=== PATIENT | female | born 1985 | race Caucasian/White ===

== ENCOUNTER 2021-10-28 18:02 | Emergency (ER) | payer OTHER, SELFPAY ==
[2021-10-28 18:14] VITALS: BP 107/73; BP 116/78; PULSE 104; PULSE 95; RESP 18; TEMP 37; O2SAT 100; O2SAT 98; BMI 20.7
[2021-10-28 20:55] LABS: MANUAL DIFF FLAG NO
[2021-10-28 20:57] LABS: Basophils Percent Auto 0.3 % (0-2); Hematocrit 39.2 % (37.0-47.0); Hemoglobin 14.2 g/dl (12.0-16.0); Imm Gran Abs Auto 0.04 X10*3/uL (0.00-0.03); Imm Gran Pct Auto 0.3 % (0.0-0.4); Lymphocytes Percent Auto 15.3 % (20-40); Mean Corpuscular HGB Conc 36.2 g/dl (31.0-35.0); Mean Corpuscular Hemoglobin 32.3 pg (27.0-33.0); Mean Corpuscular Volume 89.1 fL (80.0-98.0); Mean Platelet Volume 10.1 fL (9.4-12.3); Monocytes Absolute Auto 0.3 X10*3/uL (0.1-1.2); Monocytes Percent Auto 2.5 % (2-11); Neutrophils Absolute Auto 10.6 x10*3/uL (2.0-8.3); Neutrophils Percent Auto 81.6 % (45-73); Platelet Count 358 X10*3/uL (160-400); Red Cell Distribution Width 15.8 % (11.0-16.0)
--- NOTE | 2021-10-28 21:14 | ED_ITS ---
HPI - Nausea/Vomiting/Diarrhea General Chief complaint: Nausea/Vomiting/Diarrhea Stated complaint: abd pain / vomiting Time Seen by Provider: 10/28/21 19:10 Source: patient Mode of arrival: EMS History of Present Illness HPI Narrative: 36-year-old female who arrives via EMS with a history of cyclical vomiting and states that she has been undergoing nausea vomiting ?all day long?. She states that the vomiting started yesterday and now complains of significant epigastric pain, she has received 4 mg of Zofran IM and denies fever, chills, diarrhea or urinary symptoms. Related Data Allergies Allergy/AdvReac Type Severity Reaction Status Date / Time Unable to Assess Allergy Verified 10/28/21 19:10 Review of Systems Review of Systems: Pertinent positives and negatives as stated in HPI 10 point review of systems otherwise negative. [facility] Past Medical History Source: nursing notes reviewed Social History Social History Patient Tobacco Use Status: Never used Tobacco Use of substances other than those prescribed or required for medical reasons: No Patient : No Physical Exam Vital Signs: Vital Signs: Last Vital Signs Temp 98.6 F 10/28/21 18:14 Pulse 95 10/28/21 18:14 Resp 18 10/28/21 18:14 BP 116/78 10/28/21 18:14 Pulse Ox 100 10/28/21 18:14 O2 Del Method 10/28/21 18:14 BMI result Body Mass Index 20.7 VITAL SIGNS: Reviewed. GENERAL: Thin, moderate distress. HEAD: Normocephalic/atraumatic EYES: PERRLA, EOMI EARS: Ext canals without abnormality, TMs non-bulging and non-erythematous NOSE: Nares patent bilateral OROPHARYNX: no oral lesions noted, posterior pharynx clear and dental caries NECK: Supple, no adenopathy LUNGS: Normal breath sounds. No adventitious sounds or accessory muscle use. SpO2<100> CARDIOVASCULAR: Regular rate and rhythm without noted murmurs ABDOMEN: Soft, non-tender, non-distended with bowel sounds. MUSCULOSKELETAL: No tenderness, deformities, or effusions noted on gross inspection. EXTREMITIES: No cyanosis, clubbing or edema. SKIN: Inspection of the skin reveals no rashes NEUROLOGIC: Alert and oriented x 4. Strength and sensation to light touch were grossly intact x 4. Course Course Course Narrative: 36-year-old female with history and clinical presentation most consistent with cyclical vomiting, will evaluate for other competing etiologies and in the meantime patient will be provided with IM antinausea medications. Suspect that observe leukocytosis is secondary to patient's nausea and vomiting. Signed out to Dr Love. MDM - Nausea/Vomiting/Diarrhea Lab Data Result diagrams: 10/28/21 20:50 10/28/21 20:49 Labs: Lab Results 10/28/21 Range/Units 20:50 WBC 13.0 H (4.8-10.8) X10*3/uL RBC 4.40 (4.20-5.50) X10*6/uL Hgb 14.2 (12.0-16.0) g/dl Hct 39.2 (37.0-47.0) % MCV 89.1 (80.0-98.0) fL MCH 32.3 (27.0-33.0) pg MCHC 36.2 H (31.0-35.0) g/dl RDW 15.8 (11.0-16.0) % Plt Count 358 (160-400) X10*3/uL MPV 10.1 (9.4-12.3) fL Immature Gran % (Auto) 0.3 (0.0-0.4) % Neut % (Auto) 81.6 H (45-73) % Lymph % (Auto) 15.3 L (20-40) % [place] % (Auto) 2.5 (2-11) % Eos % (Auto) 0.0 (0-4) % Baso % (Auto) 0.3 (0-2) % Lymph # (Auto) 2.0 (1.2-4.9) X10*3/uL [place] # (Auto) 0.3 (0.1-1.2) X10*3/uL Eos # (Auto) 0.0 (0.0-0.4) X10*3/uL Baso # (Auto) 0.0 (0.0-0.2) X10*3/uL Abs Immat Gran (auto) 0.04 H (0.00-0.03) X10*3/uL Absolute Neuts (auto) 10.6 H (2.0-8.3) x10*3/uL Absolute Nucleated RBC 0.000 (0.0-0.012) X10*3/uL Nucleated RBC % (auto) 0.0 (0.0-0.2) /100WBC Discharge Plan Discharge Clinical Impression: Nausea & vomiting Patient Disposition: Still a Patient
[2021-10-28] MEDS: Haloperidol Lactate 5 MG/ML VIAL 2.5 MG IM (21:22)
[2021-10-28] MEDS: diphenhydrAMINE HCL 50 MG/ML VIAL 25 MG IM (21:22)
[2021-10-28] MEDS: Metoclopramide HCl 10 MG/2 ML VIAL IM (21:22)
[2021-10-29 00:25] VITALS: BP 106/75; PULSE 102; RESP 16; TEMP 36.7; O2SAT 98
[2021-10-29] MEDS: Midazolam HCl/PF 2 MG/2 ML VIAL 1 MG IM (01:15)
--- NOTE | 2021-10-29 01:21 | PC.NURSE ---
Patient is a difficult stick, unable to place an IV line. Dr. Mcknight attempted ultrasound guided IV line placement-no success. Patient refused IV line placement in her neck and requesting all medications by IM. Patient was offered joe sara with crackers to check if patient is able to hold food and fluids-patient vomited yellow, foamy vomitus after having few sips of joe sara.
--- NOTE | 2021-10-29 06:06 | PC.NURSE ---
Phenergan 12.[address] Emanuel verbal order.
[2021-10-29 06:30] VITALS: BP 118/84; PULSE 76; RESP 18; TEMP 36.6; O2SAT 100
== END 2021-10-29 06:36 | disposition home or self-care (01) ==
PROVIDERS: Student in an Organized Health Care Education/Training Program; Emergency Provider Emergency Medicine
DX: R11.2 Nausea with vomiting, unspecified (principal); Z79.899 Other long term (current) drug therapy
CPT/HCPCS: 36415; 85025; 96372; 96374; 96375; 99284; J1200; J2250; J2550; J2765